=== PATIENT | male | born 1960 | race Caucasian/White ===

== ENCOUNTER → 2017-11-05 | Outpatient (CLI) | payer OTHER | END | disposition home or self-care (01) | LOC: CDC 09:43 | DX: Z01.810 Encounter for preprocedural cardiovascular examination (principal); K42.0 Umbilical hernia with obstruction, without gangrene | CPT/HCPCS: 93000 ==

== ENCOUNTER 2017-11-11 06:21 | Day surgery (SDC) | payer OTHER ==
[~2017-11-11] VITALS: Ht 185.4 cm; Wt 124.7 kg
[~2017-11-11 06:21] MED LIST: ADVIL200 MG PO; ALTOPREV20 MG PO; MEN'S MULTI-VI1 EACH PO; NON-ASPIRIN PA500 MG PO; TRIGLIDE160 MG PO
[2017-11-11 06:52] VITALS: BP 152/88
[2017-11-11] MEDS ORDERED: PROAIR HFA8.5 GM IH (06:52)
[2017-11-11] MEDS ORDERED: PERCOCET 5/31 TABLET PO (09:48)
[2017-11-11 10:30] VITALS: BP 131/71
[2017-11-11 12:20] VITALS: BP 154/83
== END 2017-11-11 12:45 | disposition home or self-care (01) ==
LOC: SDC 06:21
PROC: 0WUF4JZ Supplement Abdominal Wall with Synthetic Substitute, Percutaneous Endoscopic Approach (ICD-10-PCS; principal; 2017-11-11)
DX: K42.0 Umbilical hernia with obstruction, without gangrene (principal); I10 Essential (primary) hypertension; E78.5 Hyperlipidemia, unspecified; E66.9 Obesity, unspecified; Z68.36 Body mass index [BMI] 36.0-36.9, adult; Z91.012 Allergy to eggs; Z91.040 Latex allergy status
CPT/HCPCS: C1781; J0690; J1100; J2405; J2710; J3010; J7643